=== PATIENT | male | born 1990 ===

== ENCOUNTER → 2023-06-09 | Outpatient (CLI) | payer OTHER | END | disposition home or self-care (01) | LOC: LAB 15:36 | PROVIDERS: ATTEND Nurse Practitioner | DX: H57.89 Other specified disorders of eye and adnexa (principal); Z20.828 Contact with and (suspected) exposure to other viral communicable diseases; T30.0 Burn of unspecified body region, unspecified degree | CPT/HCPCS: 36415; 86703; 86706; 86803; 87340 ==